=== PATIENT | male | born 1955 | race Caucasian/White ===

== ENCOUNTER → 2019-10-23 | Outpatient (REF) | payer MEDICARE ==
[2019-12-04 14:12] LABS: ANCA-ATYPICAL SEE SEPARATE REPORT; ANTI-GLOMERULAR BASEMENT MEMB SEE SEPARATE REPORT; Lyme Disease IgG/IgM Antibodie SEE SEPARATE REPORT; PERINUCLEAR AB ANCA-P SEE SEPARATE REPORT
[2019-12-04 14:13] LABS: ANTI DOUBLE STRAND-DNA AB See Separate Report; ANTI DS-DNA AB SEE SEPARATE REPORT; ANTINUCLEAR ANTIBODIES DIRECT See Separate Report; CYTOPLASMIC NEUTROP AB ANCA-C SEE SEPARATE REPORT; FREE KAPPA LIGHT CHAINS SERUM SEE SEPARATE REPORT; FREE LAMBDA LIGHT CHAINS SERUM SEE SEPARATE REPORT; KAPPA/LAMBDA RATIO SERUM SEE SEPARATE REPORT; RNP ANTIBODIES See Separate Report; SJOGREN'S ANTI SS-A See Separate Report; SJOGREN'S ANTI SS-B See Separate Report; SMITH ANTIBODIES See Separate Report
[2019-12-18 01:37] LABS: COMPLEMENT C3 147 MG/DL (90-180); COMPLEMENT C4 33 MG/DL (10-40); HEPATITIS B CORE ANTIBODY IGM NEGATIVE (NEGATIVE); HEPATITIS B SURFACE ANTIBODY NEGATIVE (POSITIVE); HEPATITIS B SURFACE ANTIGEN NEGATIVE (NEGATIVE); HEPATITIS C VIRUS ABY INDEX 0.1 INDEX (<0.8)
== END ==
LOC: M LAB REF 12:48
PROVIDERS: ATTEND Internal Medicine Nephrology
DX: R80.9 Proteinuria, unspecified (principal)

== ENCOUNTER → 2019-11-23 | Outpatient (REF) | payer MEDICARE | LOC: M LAB REF 17:12 | PROVIDERS: ATTEND Internal Medicine Nephrology | DX: R80.9 Proteinuria, unspecified (principal); Z12.5 Encounter for screening for malignant neoplasm of prostate ==